=== PATIENT | male | born 1965 | race African-American/Black ===

== ENCOUNTER 2024-10-22 10:42 | Emergency (ER) | payer SELFPAY ==
[2024-10-22] MEDS ORDERED: Sodium Chloride 0.9% 10 ML Syringe FLUSH PRN (11:28)
[2024-10-22] MEDS ORDERED: Sodium Chloride 0.9% 2.5 ML Syringe FLUSH PRN (11:28)
[2024-10-22 11:41] LABS: BASOPHILS ABSOLUTE AUTO 0.06 K/uL (0.00-0.20); BASOPHILS PERCENT AUTO 1.1 % (0.0-1.0); EOSINOPHILS ABSOLUTE AUTO 0.34 K/uL (0.00-0.45); EOSINOPHILS PERCENT AUTO 6.2 % (0.0-6.0); IMMATURE GRAN ABSOLUTE AUTO 0.02 K/uL (0.00-0.05); IMMATURE GRAN PERCENT AUTO 0.4 % (0.0-0.4); LYMPHOCYTES ABSOLUTE AUTO 1.38 K/uL (1.00-4.80); LYMPHOCYTES PERCENT AUTO 25.2 % (24.0-44.0); MONOCYTES ABSOLUTE AUTO 0.37 K/uL (0.00-0.80); MONOCYTES PERCENT AUTO 6.8 % (0.0-8.0); NEUTROPHILS ABSOLUTE AUTO 3.31 K/uL (1.80-7.70); NEUTROPHILS PERCENT AUTO 60.3 % (41.0-71.0); NRBC ABSOLUTE 0.00 K/uL (0.00-0.02); NRBC PERCENT 0.0 /100WBC (0.0-0.2); PLATELET COUNT,PLT 151 K/uL (150-400); RED BLOOD CELL COUNT 5.88 M/uL (4.52-5.90); WHITE BLOOD CELL COUNT,WBC 5.48 K/uL (3.9-11.3)
[2024-10-22 11:54] LABS: A/G RATIO 0.8 (0.9-1.6); ALANINE AMINOTRANSFERASE,ALT 24 IU/L (14-63); ASPARTATE AMNIOTRANSFERASE,AST 27 IU/L (15-37); BILIRUBIN TOTAL 0.5 mg/dL (0.2-1.0); BLOOD UREA NITROGEN,BUN 15 mg/dL (7.0-18.0); CARBON DIOXIDE,CO2 30.3 mmol/L (21.0-32.0); CHLORIDE,CL 105 mmol/L (98-107); CREATININE 1.5 mg/dL (0.8-1.3); GLUCOSE RANDOM 105 mg/dL (74-106); POTASSIUM,K 3.5 mmol/L (3.5-5.1); PRO B-TYPE NATRIUR PEPT,BNPPRO 716 pg/mL (0-125); PROTEIN TOTAL,TP 7.7 g/dL (6.4-8.2); SODIUM,NA 143 mmol/L (136-148); TSH ULTRASENSITIVE 1.97 uIU/mL (0.36-3.74)
[2024-10-22 11:56] LABS: ESTIMATED GFR 53 mL/min (>60)
== END 2024-10-22 14:31 | disposition home or self-care (01) ==
LOC: MW.ED 10:42
DX: I10 Essential (primary) hypertension (principal); E78.00 Pure hypercholesterolemia, unspecified; Z75.3 Unavailability and inaccessibility of health-care facilities; Z79.82 Long term (current) use of aspirin; Z79.899 Other long term (current) drug therapy
CPT/HCPCS: 36415; 80053; 82947; 83880; 84443; 84484; 85025; 93005; 99285; A9270; 99283

== ENCOUNTER 2024-12-16 21:13 | Emergency (ER) | payer OTHER ==
[2024-12-16] MEDS: Diphtheria,Pertussis(Acell),Tetanus Vaccine 0.5 ML Syringe IM ONE (22:06)
[2024-12-17] MEDS: Bacitracin Oint 1 GM U/D Packet TOP ONE (00:48)
== END 2024-12-17 01:07 | disposition home or self-care (01) ==
LOC: MW.ED 21:13
DX: S61.012A Laceration without foreign body of left thumb without damage to nail, initial encounter (principal); I10 Essential (primary) hypertension; E78.00 Pure hypercholesterolemia, unspecified; Z86.73 Personal history of transient ischemic attack (TIA), and cerebral infarction without residual deficits; Z79.82 Long term (current) use of aspirin; Z23 Encounter for immunization; Z79.84 Long term (current) use of oral hypoglycemic drugs; W25.XXXA Contact with sharp glass, initial encounter
CPT/HCPCS: 12002; 73140; 90471; 90715; 96372; 99283; J0690; J2003; 99284

== ENCOUNTER 2024-12-29 16:03 | Emergency (ER) | payer OTHER | END 2024-12-29 16:53 | disposition left against medical advice (07) | LOC: MW.ED 16:03 | DX: S61.012D Laceration without foreign body of left thumb without damage to nail, subsequent encounter (principal); Z48.02 Encounter for removal of sutures | CPT/HCPCS: 99281 ==

== ENCOUNTER 2024-12-31 16:49 | Emergency (ER) | payer OTHER | END 2024-12-31 17:44 | disposition home or self-care (01) | LOC: MW.ED 16:49 | DX: S61.012D Laceration without foreign body of left thumb without damage to nail, subsequent encounter (principal); I10 Essential (primary) hypertension; E78.00 Pure hypercholesterolemia, unspecified; Z79.899 Other long term (current) drug therapy; X58.XXXD Exposure to other specified factors, subsequent encounter | CPT/HCPCS: 99282; 99283 ==

== ENCOUNTER 2025-01-30 18:52 | Emergency (ER) | payer SELFPAY ==
[2025-01-30] MEDS: Acetaminophen/HYDROcodone 325-5 MG Tab PO ONE (20:41)
== END 2025-01-30 20:51 | disposition home or self-care (01) ==
LOC: MW.ED 18:52
DX: B02.9 Zoster without complications (principal); I10 Essential (primary) hypertension; E78.00 Pure hypercholesterolemia, unspecified; E11.9 Type 2 diabetes mellitus without complications; Z79.82 Long term (current) use of aspirin; Z79.899 Other long term (current) drug therapy
CPT/HCPCS: 99282; A9270; 99283

== ENCOUNTER 2025-02-13 18:29 | Emergency (ER) | payer SELFPAY | END 2025-02-13 19:47 | disposition home or self-care (01) | LOC: MW.ED 18:29 | DX: Z76.0 Encounter for issue of repeat prescription (principal); I10 Essential (primary) hypertension; E11.9 Type 2 diabetes mellitus without complications; E78.00 Pure hypercholesterolemia, unspecified; Z79.899 Other long term (current) drug therapy; Z75.3 Unavailability and inaccessibility of health-care facilities | CPT/HCPCS: 99281; A9270; 99283 ==